=== PATIENT | female | born 1985 | race Caucasian/White ===

== ENCOUNTER 2018-06-12 07:10 | Day surgery (SDC) | payer MEDICAID, SELFPAY ==
[2018-06-12 07:33] VITALS: BP 134/91; PULSE 59; RESP 16; TEMP 37.1; O2SAT 100; BMI 22.3
--- NOTE | 2018-06-12 08:45 | TONS_PTH ---
PATIENT: JUDD DANIELS LOC: [facility] [place] U#:[id number] AGE/SX: 32/F ROOM: RE06/12/[address]: Dr. Wei Villavicencio MD : [id number] BED: DIS: 06/12/2018 SPEC #: [id number] RECD: 06/12/18 11:40 STATUS: BRODERICK TIBURCIO #: [id number] MADELINE: 06/12/18 08:[address]: Wei Villavicencio DEPT: SURGICAL PATHOLOGY RECD BY: Douglas Hodge ENTERED: 06/12/18 12:07 SP TYPE: TONSILS OTHR DR: Out of Town Doctor Tissues: Tonsil, NOS Procedures: Surgery Specimen Level III HEADER OPERATION: Tonsillectomy PRE-OP DIAGNOSIS: Acute recurrent streptococcal tonsillitis TISSUE SUBMITTED: Tonsils - tie on the right MICROSCOPIC DIAGNOSIS Bilateral tonsils, tonsillectomy: Reactive lymphoid hyperplasia, consistent with chronic tonsillitis. Focal actinomyces colonization. MAE:alisia 06/13/18 MICROSCOPIC DESCRIPTION Slides are reviewed. GROSS DESCRIPTION Received is one container labeled with the patient's name and designated tonsils - tie on right are two tonsils that in aggregate weigh 9.2 gm. The right tonsil has a tie on it and measures 3 x 2 x 2 cm. The left tonsil measures 3 x 2 x 1.8 cm. Both tonsils are similar in appearance. The external surfaces are pink-michelle, smooth, glistening and somewhat lobulated. Focally they are hemorrhagic, granular and bear cautery artifact. Serial cross sections through the tonsils reveal normal tonsillar architecture. Sections are submitted in two cassettes as follows: 1 - right tonsil, 2 - left tonsil. / MAE:alisia 06/12/18 TC:3 CPT: 23075 x2
[2018-06-12 09:45] VITALS: BP 134/91; BP 151/93; PULSE 77; RESP 16; TEMP 36.2; O2SAT 100
--- NOTE | 2018-06-12 09:53 | PCM.OP.BLANK ---
Operative Report Date of Procedure: 06/12/18 Operative report on Monica Ortiz Procedure tonsillectomy Preoperative diagnosis chronic tonsillitis Postoperative diagnosis chronic tonsillitis Anesthesia endotracheal general Procedure the patient was placed supine on the operating room table and after satisfactory endotracheal general anesthesia been obtained sterile head drapes were applied and the patient draped in the usual sterile manner. A Arthur-Jessica mouthgag was placed in the oral cavity and the tongue retracted anteriorly The tonsil tissue was noted to be very large. The left tonsil was held with tenaculum forceps and an incision made in the anterior tonsillar fold. Capsule was identified and the tonsil dissected inferiorly. Multiple bleeders were coagulated with the Bovie and at the base the tonsil was removed. The right tonsil was held with tenaculum forceps and an incision made in the anterior tonsillar fold. Capsule was identified and the tonsil dissected inferiorly. The bleeders were again cauterized with the Bovie. After meticulous hemostasis had been obtained the hypopharynx was suctioned and the patient extubated and returned to the recovery room in satisfactory condition. Wei Villavicencio MD
[2018-06-12 10:00] VITALS: BP 134/90; BP 134/91; PULSE 64; RESP 16; O2SAT 100
[2018-06-12 10:08] VITALS: BP 123/89; BP 134/91; PULSE 63; RESP 16; TEMP 36.7; O2SAT 100
[2018-06-12 11:15] VITALS: BP 126/82; BP 134/91; PULSE 75; RESP 16; TEMP 36.6; O2SAT 99
== END 2018-06-12 11:19 | disposition home or self-care (01) ==
LOC: SDC 07:11 → AC 07:13
PROVIDERS: Referring Provider Otolaryngology Otolaryngology/Facial Plastic Surgery; Visit Provider Otolaryngology Otolaryngology/Facial Plastic Surgery
DX: J03.01 Acute recurrent streptococcal tonsillitis (principal); J35.01 Chronic tonsillitis; I10 Essential (primary) hypertension
CPT/HCPCS: 00170; 42826; 88304; J7120; J2405